=== PATIENT | female | born 1955 | race Caucasian/White ===

== ENCOUNTER 2018-05-01 13:33 | Day surgery (SDC) | END 2018-05-01 16:59 | disposition home or self-care (01) ==

== ENCOUNTER 2018-07-23 16:01 | Inpatient (IN) | payer OTHER ==
[~2018-07-23] VITALS: Ht 162.6 cm; Wt 88.0 kg
[~2018-07-23 16:01] MED LIST: ASPI-535 PO; GABA-528 PO; ibuprofen PO; meloxicam PO; simvastatin PO
[2018-07-23 19:49] VITALS: BP 153/74; PULSE 89; RESP 20
[2018-07-23] MEDS ORDERED: PREG300C PO (19:49)
[2018-07-23 20:18] VITALS: Ht 162.6 cm; Wt 88.0 kg
[2018-07-23] MEDS ORDERED: NACL 0.9% 3 ML SYG IV SCH (20:30)
[2018-07-23] MEDS: DEXTROSE 5%-0.45% NACL 1,000 ML IV SCH (20:41)
[2018-07-23] MEDS: GABAPENTIN 300 MG CAP PO SCH (21:49)
[2018-07-23] MEDS: morphine 2 MG INJ IV PRN (22:00)
[2018-07-23] MEDS: PREGABALIN 100 MG CAP PO SCH (22:37)
--- NOTE | 2018-07-23 23:12 | HP ---
Date/Time of Note Date/Time of Note DATE: 07/23/18 TIME: 23:12 Assessment/Plan VTE Prophylaxis SCD applied (from Nsg): Yes Pharmacological prophylaxis: NA/contraindicated Pharm contraindication: low risk/ambulating, other (Awaiting surgical eval for likely cholecystectomy) Lines/Catheters IV Catheter Type (from Nrsg): Peripheral IV Assessment/Plan Assessment/Plan 1. Acute cholecystitis -Keep n.p.o. with IV fluid -IV antibiotic -Surgical consult 2. Dyslipidemia: Hold Zocor for now 3. Fibromyalgia/anxiety: Pain management HPI/ROS Admit Date/Time Admit Date/Time Jul 23, 2018 at 19:10 Hx of Present Illness This is a 62-year-old female with a history of dyslipidemia, fibromyalgia, anxiety, arthritis who initially presented to an outside hospital complaining of right upper quadrant abdominal pain. Pain is been going on for the past 1 week. Abdominal ultrasound showed cholelithiasis with gallbladder wall thickening and pericholecystic fluid. Liver chemistries were WNL. Platelet was 90, hemoglobin almost 11, WBC around 8. Patient was transferred to [facility] for insurance reasons. PMH/Family/Social Past Medical History Medical History: other (See HPI) Medications Current Medications Dextrose/Sodium Chloride 1,000 ml @ 100 mls/hr Q10H IV Last administered on 07/23/18at 20:41; Admin Dose 100 MLS/HR; Start 07/23/18 at 20:06 IV Flush (NS 3 ml) 3 ml PER PROTOCOL IV ; Start 07/23/18 at 20:30 Ondansetron HCl (Zofran Inj) 4 mg Q6H PRN IV NAUSEA/VOMITING; Start 07/23/18 at 20:30 Morphine Sulfate (morphine) 2 mg Q4H PRN IV .SEVERE PAIN 7-10 Last administered on 07/23/18at 22:00; Admin Dose 2 MG; Start 07/23/18 at 20:30 Gabapentin (Neurontin) 600 mg TID PO Last administered on 07/23/18at 21:49; Admin Dose 600 MG; Start 07/23/18 at 21:00 Pregabalin (Lyrica) 300 mg BID PO Last administered on 07/23/18at 22:37; Admin Dose 300 MG; Start 07/23/18 at 21:00 Coded Allergies: Penicillins (Verified Allergy, Unknown, 05/01/18) Past Surgical History Past Surgical Hx: other (See HPI) Family History Significant Family History: no pertinent family hx Social History Alcohol Use: none Smoking Status: Former smoker Drug Use: none Exam/Review of Systems Vital Signs Vitals Vital Signs Date Temp Pulse Resp B/P (MAP) Pulse Ox O2 O2 Flow FiO2 Time Delivery Rate 07/23/18 99.2 89 20 153/74 96 Room Air 19:49 (100) Exam Constitutional: alert, oriented, well developed Eyes: EOMI, PERRL Respiratory: clear to auscultation, normal air movement Cardiovascular: regular rate and rhythm, nl pulses Gastrointestinal: soft, other (Tender to deep palpation in the right upper quadrant area with minimal guarding. No rigidity, no rebound tenderness) Extremities: normal pulses GARRISON MONIQUE MD Jul 23, 2018 23:12
[2018-07-24 01:59] VITALS: BP 123/64; PULSE 85; RESP 20
[2018-07-24] MEDS: morphine 2 MG INJ IV PRN ×4 (04:39→20:43)
[2018-07-24] MEDS: DEXTROSE 5%-0.45% NACL 1,000 ML IV SCH ×2 (06:22→17:53)
[2018-07-24 08:15] VITALS: BP 118/58; PULSE 76; RESP 18
[2018-07-24] MEDS: PREGABALIN 100 MG CAP PO SCH ×2 (08:53→22:04)
[2018-07-24] MEDS: GABAPENTIN 300 MG CAP PO SCH ×3 (08:53→20:43)
--- NOTE | 2018-07-24 09:49 | PN ---
Date/Time of Note Date/Time of Note DATE: 07/24/18 TIME: 09:46 Assessment/Plan VTE Prophylaxis Risk score (from Ns)>0 risk: 2 SCD applied (from Nsg): Yes Pharmacological prophylaxis: other Lines/Catheters IV Catheter Type (from Nrsg): Peripheral IV Assessment/Plan Hospital Course S: Patient still n.p.o., complaining of some abdominal pain and headache. O: Vs -see below PE: Constitutional: alert, oriented, in mild distress Eyes: EOMI, PERRL Respiratory: clear to auscultation, normal air movement Cardiovascular: regular rate and rhythm, nl pulses Gastrointestinal: soft, other (Tender to deep palpation in the right upper quadrant area with minimal guarding. No rigidity, no rebound tenderness) Extremities: normal pulses Assessment/Plan: 62-year-old female who presents with: 1. Abdominal pain: Likely secondary to acute cholecystitis. Per notes, abdominal ultrasound showed cholelithiasis with gallbladder wall thickening and pericholecystic fluid. -Continue to keep n.p.o. with IV fluid -For now continue IV antibiotic -Follow-up recommendations from surgical consult 2. Dyslipidemia: Holding Zocor for now -Consider checking lipid panel 3. Fibromyalgia/anxiety: Pain management with current medications, monitor Result Diagram: 07/24/18 0440 07/24/18 0440 Results 24hrs Laboratory Tests Test 07/24/18 04:40 White Blood Count 6.4 Red Blood Count 3.73 L Hemoglobin 10.5 L Hematocrit 32.6 L Mean Corpuscular Volume 87.4 Mean Corpuscular Hemoglobin 28.2 L Mean Corpuscular Hemoglobin Concent 32.2 Red Cell Distribution Width 13.7 Platelet Count 132 L Mean Platelet Volume 10.5 #H Immature Granulocytes % 2.000 H Neutrophils % 61.5 Lymphocytes % 18.5 Monocytes % 13.9 H Eosinophils % 3.8 Basophils % 0.3 Nucleated Red Blood Cells % 0.0 Immature Granulocytes # 0.130 H Neutrophils # 3.9 Lymphocytes # 1.2 Monocytes # 0.9 Eosinophils # 0.2 Basophils # 0.0 Nucleated Red Blood Cells # 0.0 Sodium Level 140 Potassium Level 3.9 Chloride Level 102 Carbon Dioxide Level 29 Anion Gap 9 Blood Urea Nitrogen 4 L Creatinine 0.58 Est Glomerular Filtrat Rate mL/min > 60 Glucose Level 119 Calcium Level 8.8 Phosphorus Level 3.9 Magnesium Level 1.8 Total Bilirubin 0.3 Direct Bilirubin 0.00 Indirect Bilirubin 0.3 Aspartate Amino Transf (AST/SGOT) 22 Alanine Aminotransferase (ALT/SGPT) 14 Alkaline Phosphatase 77 Total Protein 6.6 Albumin 3.1 L Globulin 3.50 H Albumin/Globulin Ratio 0.88 Lipase 53 Exam/Review of Systems Exam Vitals Vital Signs Date Temp Pulse Resp B/P (MAP) Pulse Ox O2 O2 Flow FiO2 Time Delivery Rate 07/24/18 97.8 76 18 118/58 93 08:15 (78) 07/24/18 Room Air 01:59 Intake and Output 07/23/18 07/23/18 07/24/18 1515:00 23:00 07:00 IntakeIntake Total 1000 ml BalanceBalance 1000 ml Results Results 24hrs Laboratory Tests Test 07/24/18 04:40 White Blood Count 6.4 Red Blood Count 3.73 L Hemoglobin 10.5 L Hematocrit 32.6 L Mean Corpuscular Volume 87.4 Mean Corpuscular Hemoglobin 28.2 L Mean Corpuscular Hemoglobin Concent 32.2 Red Cell Distribution Width 13.7 Platelet Count 132 L Mean Platelet Volume 10.5 #H Immature Granulocytes % 2.000 H Neutrophils % 61.5 Lymphocytes % 18.5 Monocytes % 13.9 H Eosinophils % 3.8 Basophils % 0.3 Nucleated Red Blood Cells % 0.0 Immature Granulocytes # 0.130 H Neutrophils # 3.9 Lymphocytes # 1.2 Monocytes # 0.9 Eosinophils # 0.2 Basophils # 0.0 Nucleated Red Blood Cells # 0.0 Sodium Level 140 Potassium Level 3.9 Chloride Level 102 Carbon Dioxide Level 29 Anion Gap 9 Blood Urea Nitrogen 4 L Creatinine 0.58 Est Glomerular Filtrat Rate mL/min > 60 Glucose Level 119 Calcium Level 8.8 Phosphorus Level 3.9 Magnesium Level 1.8 Total Bilirubin 0.3 Direct Bilirubin 0.00 Indirect Bilirubin 0.3 Aspartate Amino Transf (AST/SGOT) 22 Alanine Aminotransferase (ALT/SGPT) 14 Alkaline Phosphatase 77 Total Protein 6.6 Albumin 3.1 L Globulin 3.50 H Albumin/Globulin Ratio 0.88 Lipase 53 Medications Medication Current Medications Dextrose/Sodium Chloride 1,000 ml @ 100 mls/hr Q10H IV Last administered on 07/24/18at 06:22; Admin Dose 100 MLS/HR; Start 07/23/18 at 20:06 IV Flush (NS 3 ml) 3 ml PER PROTOCOL IV Last administered on 07/24/18 03:02; Admin Dose 3 ML; Start 07/23/18 at 20:30 Ondansetron HCl (Zofran Inj) 4 mg Q6H PRN IV NAUSEA/VOMITING; Start 07/23/18 at 20:30 Morphine Sulfate (morphine) 2 mg Q4H PRN IV .SEVERE PAIN 7-10 Last administered on 07/24/18 08:54; Admin Dose 2 MG; Start 07/23/18 at 20:30 Gabapentin (Neurontin) 600 mg TID PO Last administered on 07/24/18 08:53; Admin Dose 600 MG; Start 07/23/18 at 21:00 Pregabalin (Lyrica) 300 mg BID PO Last administered on 07/24/18 08:53; Admin Dose 300 MG; Start 07/23/18 at 21:00 Hydromorphone HCl (Dilaudid) 0.5 mg Q4H PRN IV SEVERE PAIN LEVEL 7-10; Start 07/24/18 at 10:00 ROSLYN DAS Jul 24, 2018 09:49
[2018-07-24] MEDS: HYDROmorphONE 0.5 MG/0.5 ML SYG IV PRN ×2 (13:07→19:08)
[2018-07-24 13:18] VITALS: BP 128/60; PULSE 78; RESP 18
[2018-07-24 19:41] VITALS: BP 141/80; PULSE 81; RESP 18
--- NOTE | 2018-07-24 20:25 | CONS ---
Assessment/Plan Assessment/Plan Assessment/Plan (Daily) 5-day history abdominal pain consistent with acute cholecystitis with pericholecystic fluid. No evidence of CBD obstruction normal LFTs. Plan keep patient n.p.o. IV fluids IV antibiotics and plan for lap scopic cholecystectomy as soon as or time can be arranged. Consultation Date/Type/Reason Admit Date/Time Jul 23, 2018 at 19:10 Date of Consultation: Jul 24, 2018 Type of Consult Surgery consult Reason for Consultation Abdominal pain suspicious for cholecystitis Requesting Provider: GARRISON MONIQUE MD Date/Time of Note DATE: 07/24/18 TIME: 20:24 Hx of Present Illness Patient presents with 5-day epigastric right upper quadrant pain nausea. Patient went to outside hospital and was evaluated but because of insurance reasons was transferred to [facility]. On evaluation in the emergency room patient was noted to have tenderness. Imaging studies from outside hospital showed thickening of the gallbladder with pericholecystic fluid consistent with acute cholecystitis. LFTs normal. No similar symptoms to this in the past. Past medical history unremarkable past surgical history unremarkable. Past Medical History Medical History: other (See HPI) Home Meds Reported Medications Pregabalin* (Lyrica*) 300 Mg Capsule, 300 MG PO BID, CAP 07/23/18 Aspirin Ec (Aspir 81) 81 Mg Tablet.dr, 81 MG PO DAILY, #30 TAB 05/01/18 [ibuprofen] No Conflict Check, PO DAILY PRN for PAIN AND/OR INFLAMMATION 05/01/18 [meloxicam] No Conflict Check, PO DAILY 05/01/18 [simvastatin] 20 No Conflict Check, PO hs 05/01/18 Gabapentin* (Gabapentin*) 800 Mg Tablet, 600 MG PO TID, TAB 07/20/14 Medications Current Medications Dextrose/Sodium Chloride 1,000 ml @ 100 mls/hr Q10H IV Last administered on 07/24/18at 17:53; Admin Dose 100 MLS/HR; Start 07/23/18 at 20:06 IV Flush (NS 3 ml) 3 ml PER PROTOCOL IV Last administered on 07/24/18at 03:02; Admin Dose 3 ML; Start 07/23/18 at 20:30 Ondansetron HCl (Zofran Inj) 4 mg Q6H PRN IV NAUSEA/VOMITING; Start 07/23/18 at 20:30 Morphine Sulfate (morphine) 2 mg Q4H PRN IV .SEVERE PAIN 7-10 Last administered on 07/24/18at 14:43; Admin Dose 2 MG; Start 07/23/18 at 20:30 Gabapentin (Neurontin) 600 mg TID PO Last administered on 07/24/18at 13:07; Admin Dose 600 MG; Start 07/23/18 at 21:00 Pregabalin (Lyrica) 300 mg BID PO Last administered on 07/24/18at 08:53; Admin Dose 300 MG; Start 07/23/18 at 21:00 Hydromorphone HCl (Dilaudid) 0.5 mg Q4H PRN IV SEVERE PAIN LEVEL 7-10 Last administered on 07/24/18at 19:08; Admin Dose 0.5 MG; Start 07/24/18 at 10:00 Allergies: Coded Allergies: Penicillins (Verified Allergy, Unknown, 05/01/18) Past Surgical History Past Surgical Hx: other (See HPI) Social History Alcohol Use: none Smoking Status: Former smoker Drug Use: none Exam/Review of Systems Exam Vitals Vital Signs Date Temp Pulse Resp B/P (MAP) Pulse Ox O2 O2 Flow FiO2 Time Delivery Rate 07/24/18 98.8 81 18 141/80 94 19:41 (100) 07/24/18 Room Air 01:59 Intake and Output 07/23/18 07/23/18 07/24/18 1515:00 23:00 07:00 IntakeIntake Total 1000 ml BalanceBalance 1000 ml Exam A&O x3. HEENT pupils equal reactive to light sclerae anicteric. Lungs clear to auscultation. Heart regular rate and rhythm normal S1-S2. Abdomen soft moderate tenderness to epigastric right upper quadrant. Results Result Diagram: 07/24/1843907/24/180 Results 24hrs Laboratory Tests Test 07/24/18 04:40 White Blood Count 6.4 Red Blood Count 3.73 L Hemoglobin 10.5 L Hematocrit 32.6 L Mean Corpuscular Volume 87.4 Mean Corpuscular Hemoglobin 28.2 L Mean Corpuscular Hemoglobin Concent 32.2 Red Cell Distribution Width 13.7 Platelet Count 132 L Mean Platelet Volume 10.5 #H Immature Granulocytes % 2.000 H Neutrophils % 61.5 Lymphocytes % 18.5 Monocytes % 13.9 H Eosinophils % 3.8 Basophils % 0.3 Nucleated Red Blood Cells % 0.0 Immature Granulocytes # 0.130 H Neutrophils # 3.9 Lymphocytes # 1.2 Monocytes # 0.9 Eosinophils # 0.2 Basophils # 0.0 Nucleated Red Blood Cells # 0.0 Sodium Level 140 Potassium Level 3.9 Chloride Level 102 Carbon Dioxide Level 29 Anion Gap 9 Blood Urea Nitrogen 4 L Creatinine 0.58 Est Glomerular Filtrat Rate mL/min > 60 Glucose Level 119 Calcium Level 8.8 Phosphorus Level 3.9 Magnesium Level 1.8 Total Bilirubin 0.3 Direct Bilirubin 0.00 Indirect Bilirubin 0.3 Aspartate Amino Transf (AST/SGOT) 22 Alanine Aminotransferase (ALT/SGPT) 14 Alkaline Phosphatase 77 Total Protein 6.6 Albumin 3.1 L Globulin 3.50 H Albumin/Globulin Ratio 0.88 Lipase 53 Medications Medication Current Medications Dextrose/Sodium Chloride 1,000 ml @ 100 mls/hr Q10H IV Last administered on 07/24/18 17:53; Admin Dose 100 MLS/HR; Start 07/23/18 at 20:06 IV Flush (NS 3 ml) 3 ml PER PROTOCOL IV Last administered on 07/24/18 03:02; Admin Dose 3 ML; Start 07/23/18 at 20:30 Ondansetron HCl (Zofran Inj) 4 mg Q6H PRN IV NAUSEA/VOMITING; Start 07/23/18 at 20:30 Morphine Sulfate (morphine) 2 mg Q4H PRN IV .SEVERE PAIN 7-10 Last administered on 07/24/18 14:43; Admin Dose 2 MG; Start 07/23/18 at 20:30 Gabapentin (Neurontin) 600 mg TID PO Last administered on 07/24/18 13:07; Admin Dose 600 MG; Start 07/23/18 at 21:00 Pregabalin (Lyrica) 300 mg BID PO Last administered on 07/24/18 08:53; Admin Dose 300 MG; Start 07/23/18 at 21:00 Hydromorphone HCl (Dilaudid) 0.5 mg Q4H PRN IV SEVERE PAIN LEVEL 7-10 Last administered on 07/24/18 19:08; Admin Dose 0.5 MG; Start 07/24/18 at 10:00 GARRISON RASHID MD Jul 24, 2018 20:25
[2018-07-25] VITALS (15 sets, daily range): BP systolic 95–168; BP diastolic 49–83; PULSE 70–84; RESP 10–22
[2018-07-25] MEDS: morphine 2 MG INJ IV PRN ×2 (00:39→05:40)
[2018-07-25] MEDS: DEXTROSE 5%-0.45% NACL 1,000 ML IV SCH ×2 (03:51→12:06)
[2018-07-25] MEDS ORDERED: CLINDAMYCIN 600 MG/50 ML D5W IVPB IVPB ONE (07:00)
[2018-07-25] MEDS: GABAPENTIN 300 MG CAP PO SCH ×3 (08:26→20:31)
[2018-07-25] MEDS: PREGABALIN 100 MG CAP PO SCH ×2 (08:26→20:31)
[2018-07-25] MEDS: ONDANSETRON 4 MG INJ IV PRN ×2 (10:10→19:16)
[2018-07-25] MEDS ORDERED: MIDAZOLAM 1 MG/ML 2 ML INJ ONE (12:41)
[2018-07-25] MEDS ORDERED: FENTAnyl 50 MCG/ML VIAL ONE ×2 (12:41→14:39)
[2018-07-25] MEDS ORDERED: PROPOFOL 40 ML ONE (12:41)
[2018-07-25] MEDS ORDERED: LIDOCAINE 2% (SDV) 5 ML INJ ONE (12:41)
[2018-07-25] MEDS ORDERED: ROCURONIUM 50 MG INJ ONE (12:41)
[2018-07-25] MEDS ORDERED: FAMOTIDINE 20 MG INJ ONE (12:42)
[2018-07-25] MEDS ORDERED: ONDANSETRON 4 MG INJ ONE (12:42)
[2018-07-25] MEDS ORDERED: BUPIVACAINE 0.25% (MPF) 30 ML INJ ONE (13:12)
[2018-07-25] MEDS ORDERED: LIDOCAINE 1%/EPI (1:100,000) (MDV) 20 ML ONE (13:12)
--- NOTE | 2018-07-25 13:25 | PREAC ---
Date/Time of Note Date/Time of Note DATE: 07/25/18 TIME: 13:23 Anesthesia Eval and Record Evaluation Time Pre-Procedure Interview DATE: 07/25/18 TIME: 13:23 Age 62 Sex female NPO: 8 hrs Preoperative diagnosis acute cholecystitis Planned procedure Laparoscopic cholecystectomy Past Medical History Past Medical History: Includes (fibromyalgia, neuropathy, currently have cold sores upper right) Cardio: Dyslipidemia GI: Obesity Surgery & Anesthesia Issues No known issue Meds Anticoagulation: No Beta Quincy within 24 hr: No Reason Beta Quincy not given: Pt. not on B-Quincy Reported Medications Pregabalin* (Lyrica*) 300 Mg Capsule, 300 MG PO BID, CAP 07/23/18 Aspirin Ec (Aspir 81) 81 Mg Tablet.dr, 81 MG PO DAILY, #30 TAB 05/01/18 [ibuprofen] No Conflict Check, PO DAILY PRN for PAIN AND/OR INFLAMMATION 05/01/18 [meloxicam] No Conflict Check, PO DAILY 05/01/18 [simvastatin] 20 No Conflict Check, PO hs 05/01/18 Gabapentin* (Gabapentin*) 800 Mg Tablet, 600 MG PO TID, TAB 07/20/14 Current Medications Dextrose/Sodium Chloride 1,000 ml @ 100 mls/hr Q10H IV Last administered on 07/25/18at 03:51; Admin Dose 100 MLS/HR; Start 07/23/18 at 20:06 IV Flush (NS 3 ml) 3 ml PER PROTOCOL IV Last administered on 07/24/18at 03:02; Admin Dose 3 ML; Start 07/23/18 at 20:30 Ondansetron HCl (Zofran Inj) 4 mg Q6H PRN IV NAUSEA/VOMITING Last administered on 07/25/18at 10:10; Admin Dose 4 MG; Start 07/23/18 at 20:30 Morphine Sulfate (morphine) 2 mg Q4H PRN IV .SEVERE PAIN 7-10 Last administered on 07/25/18at 05:40; Admin Dose 2 MG; Start 07/23/18 at 20:30 Gabapentin (Neurontin) 600 mg TID PO Last administered on 07/25/18 08:26; Admin Dose 600 MG; Start 07/23/18 at 21:00 Pregabalin (Lyrica) 300 mg BID PO Last administered on 07/25/18 08:26; Admin Dose 300 MG; Start 07/23/18 at 21:00 Hydromorphone HCl (Dilaudid) 0.5 mg Q4H PRN IV SEVERE PAIN LEVEL 7-10 Last administered on 07/24/18at 19:08; Admin Dose 0.5 MG; Start 07/24/18 at 10:00 Meds reviewed: Yes Allergies Coded Allergies: Penicillins (Verified Allergy, Unknown, 05/01/18) Allergies Reviewed: Yes Labs/Studies Labs Reviewed: Reviewed by anesthesiologist Result Diagram: 07/25/18 0432 07/25/18431 Laboratory Tests 07/25/18 04:32 test: N/A Pre-procedure Exam Last vitals Vital Signs Date Temp Pulse Resp B/P (MAP) Pulse Ox O2 O2 Flow FiO2 Time Delivery Rate 07/25/18 98.7 84 20 124/78 92 08:01 (93) 07/24/18 Room Air 01:59 Airway: Adequate mouth opening, Adequate thyromental dist Mallampati: Mallampati II Teeth: Abnormal (multiple missing teeth upper and lower.. edentulous upper area w/ some implants) Lung: Normal Heart: Normal ASA Physical Status ASA physical status: 2 Emergency: None Planned Anesthetic General/MAC: ETT Pre-operative Attestations Prior to commencing anesthesia and surgery, the patient was re-evaluated, there was verification of: *The patient's identity *The results of appropriate recent lab work and preoperative vital signs *The above evaluation not changing prior to induction *Anesthetic plan, risk benefits, alternative and complications discussed with patient/family; questions answered; patient/family understands, accepts and wishes to proceed. SHIN THOMPSON Jul 25, 2018 13:25
[2018-07-25] MEDS ORDERED: MEPERIDINE 25 MG INJ IV PRN (13:30)
[2018-07-25] MEDS ORDERED: LABETALOL HCL 20MG INJ IV PRN (13:30)
[2018-07-25] MEDS ORDERED: DIPHENHYDRAMINE 50 MG INJ IV PRN (13:30)
[2018-07-25] MEDS ORDERED: ALBUTEROL 0.083% (NEB) 2.5 MG/3 ML AMP HHN PRN (13:30)
[2018-07-25] MEDS ORDERED: FENTAnyl 50 MCG/ML VIAL IV PRN (13:30)
[2018-07-25] MEDS ORDERED: HYDROmorphONE 1 MG/5 ML IV SYRINGE IV PRN ×2 (13:30)
[2018-07-25] MEDS ORDERED: ONDANSETRON 4 MG INJ IV PRN ×2 (13:30→17:00)
[2018-07-25] MEDS ORDERED: OXYCODONE/ACETAMINOPHEN (5/325) TAB PO PRN ×2 (13:30)
[2018-07-25] MEDS ORDERED: morphine (1 MG/ML) 10ML SYRINGE IV PRN ×2 (13:30)
--- NOTE | 2018-07-25 14:05 | PN ---
Date/Time of Note Date/Time of Note DATE: 07/25/18 TIME: 14:03 Assessment/Plan VTE Prophylaxis Risk score (from Nsg)>0 risk: 2 SCD applied (from Nsg): Yes Pharmacological prophylaxis: other Lines/Catheters IV Catheter Type (from Nrsg): Peripheral IV Assessment/Plan Hospital Course S: Patient still n.p.o., complaining of some abdominal pain and headache. O: Vs -see below PE: -Unable to be performed presently because patient presently off the floor at surgical procedure Assessment/Plan: 62-year-old female who presents with: 1. Abdominal pain: Likely secondary to acute cholecystitis. Per notes, abdominal ultrasound showed cholelithiasis with gallbladder wall thickening and pericholecystic fluid. -Continue to keep n.p.o. with IV fluid -For now continue IV antibiotic -Again presently getting surgery, follow-up post operative recommendations from surgical consult 2. Dyslipidemia: Holding Zocor for now -Monitor for now 3. Fibromyalgia/anxiety: Pain management with current medications, monitor Result Diagram: 07/25/18 0432 07/25/18 0432 Results 24hrs Laboratory Tests Test 07/25/18 04:32 White Blood Count 6.6 Red Blood Count 3.95 L Hemoglobin 11.1 L Hematocrit 34.0 L Mean Corpuscular Volume 86.1 Mean Corpuscular Hemoglobin 28.1 L Mean Corpuscular Hemoglobin Concent 32.6 Red Cell Distribution Width 13.5 Platelet Count 201 # Mean Platelet Volume 10.6 H Immature Granulocytes % 0.800 H Neutrophils % 62.5 Lymphocytes % 23.0 Monocytes % 10.0 Eosinophils % 3.2 Basophils % 0.5 Nucleated Red Blood Cells % 0.0 Immature Granulocytes # 0.050 H Neutrophils # 4.2 Lymphocytes # 1.5 Monocytes # 0.7 Eosinophils # 0.2 Basophils # 0.0 Nucleated Red Blood Cells # 0.0 Sodium Level 141 Potassium Level 3.6 Chloride Level 103 Carbon Dioxide Level 29 Anion Gap 9 Blood Urea Nitrogen 4 L Creatinine 0.53 Est Glomerular Filtrat Rate mL/min > 60 Glucose Level 111 Calcium Level 8.9 Phosphorus Level 4.3 Magnesium Level 1.9 Exam/Review of Systems Exam Vitals Vital Signs Date Temp Pulse Resp B/P (MAP) Pulse Ox O2 O2 Flow FiO2 Time Delivery Rate 07/25/18 98.7 84 20 124/78 92 08:01 (93) 07/24/18 Room Air 01:59 Intake and Output 07/24/18 07/24/18 07/25/18 1515:00 23:00 07:00 IntakeIntake Total 1000 ml 1300 ml BalanceBalance 1000 ml 1300 ml Results Results 24hrs Laboratory Tests Test 07/25/18 04:32 White Blood Count 6.6 Red Blood Count 3.95 L Hemoglobin 11.1 L Hematocrit 34.0 L Mean Corpuscular Volume 86.1 Mean Corpuscular Hemoglobin 28.1 L Mean Corpuscular Hemoglobin Concent 32.6 Red Cell Distribution Width 13.5 Platelet Count 201 # Mean Platelet Volume 10.6 H Immature Granulocytes % 0.800 H Neutrophils % 62.5 Lymphocytes % 23.0 Monocytes % 10.0 Eosinophils % 3.2 Basophils % 0.5 Nucleated Red Blood Cells % 0.0 Immature Granulocytes # 0.050 H Neutrophils # 4.2 Lymphocytes # 1.5 Monocytes # 0.7 Eosinophils # 0.2 Basophils # 0.0 Nucleated Red Blood Cells # 0.0 Sodium Level 141 Potassium Level 3.6 Chloride Level 103 Carbon Dioxide Level 29 Anion Gap 9 Blood Urea Nitrogen 4 L Creatinine 0.53 Est Glomerular Filtrat Rate mL/min > 60 Glucose Level 111 Calcium Level 8.9 Phosphorus Level 4.3 Magnesium Level 1.9 Medications Medication Current Medications Dextrose/Sodium Chloride 1,000 ml @ 100 mls/hr Q10H IV Last administered on 07/25/18at 03:51; Admin Dose 100 MLS/HR; Start 07/23/18 at 20:06 IV Flush (NS 3 ml) 3 ml PER PROTOCOL IV Last administered on 07/24/18at 03:02; Admin Dose 3 ML; Start 07/23/18 at 20:30 Ondansetron HCl (Zofran Inj) 4 mg Q6H PRN IV NAUSEA/VOMITING Last administered on 07/25/18 10:10; Admin Dose 4 MG; Start 07/23/18 at 20:30 Morphine Sulfate (morphine) 2 mg Q4H PRN IV .SEVERE PAIN 7-10 Last administered on 07/25/18at 05:40; Admin Dose 2 MG; Start 07/23/18 at 20:30 Gabapentin (Neurontin) 600 mg TID PO Last administered on 07/25/18 08:26; Admin Dose 600 MG; Start 07/23/18 at 21:00 Pregabalin (Lyrica) 300 mg BID PO Last administered on 07/25/18at 08:26; Admin Dose 300 MG; Start 07/23/18 at 21:00 Hydromorphone HCl (Dilaudid) 0.5 mg Q4H PRN IV SEVERE PAIN LEVEL 7-10 Last administered on 07/24/18at 19:08; Admin Dose 0.5 MG; Start 07/24/18 at 10:00 Morphine Sulfate (morphine (REC)) 2 mg PACU ORDER PRN IV MILD PAIN 1-3; Start 07/25/18 at 13:30; Stop 07/25/18 at 18:00 Morphine Sulfate (morphine (REC)) 4 mg PACU ORDER PRN IV MOD PAIN 4-6; Start 07/25/18 at 13:30; Stop 07/25/18 at 18:00 Hydromorphone HCl (Dilaudid) 0.2 mg PACU PRN IV MILD PAIN 1-3; Start 07/25/18 at 13:30; Stop 07/25/18 at 18:00 Hydromorphone HCl (Dilaudid) 0.4 mg PACU PRN IV MOD PAIN 4-6; Start 07/25/18 at 13:30; Stop 07/25/18 at 18:00 Fentanyl (Sublimaze) 25 mcg PACU ORDER PRN IV MILD PAIN 1-3; Start 07/25/18 at 13:30; Stop 07/25/18 at 18:00 Fentanyl (Sublimaze) 50 mcg PACU ORDER PRN IV MOD PAIN 4-6; Start 07/25/18 at 13:30; Stop 07/25/18 at 18:00 Oxycodone/ Acetaminophen (Percocet (5/ 325)) 1 tab PACU ORDER PRN PO .PAIN 1-5; Start 07/25/18 at 13:30; Stop 07/25/18 at 18:00 Oxycodone/ Acetaminophen (Percocet (5/ 325)) 2 tab PACU ORDER PRN PO .PAIN 6-10; Start 07/25/18 at 13:30; Stop 07/25/18 at 18:00 Ondansetron HCl (Zofran Inj) 4 mg PACU ORDER PRN IV NAUSEA/VOMITING; Start 07/25/18 at 13:30; Stop 07/25/18 at 18:00 Labetalol HCl (Labetalol) 5 mg PACU ORDER PRN IV HIGH BLOOD PRESSURE; Start 07/25/18 at 13:30; Stop 07/25/18 at 18:00 Albuterol (Proventil 0.083% (Neb)) 2.5 mg PACU ORDER PRN HHN .WHEEZING; Start 07/25/18 at 13:30; Stop 07/25/18 at 18:00 Meperidine HCl (Demerol) 25 mg PACU ORDER PRN IV .RIGORS; Start 07/25/18 at 1 3:30; Stop 07/25/18 at 18:00 Diphenhydramine HCl (Benadryl) 25 mg PACU ORDER PRN IV .PRURITUS; Start 07/25/18 at 13:30; Stop 07/25/18 at 18:00 ROSLYN DAS Jul 25, 2018 14:05
[2018-07-25] MEDS ORDERED: SUGAMMADEX SODIUM 200 MG/2 ML VIAL IV ONE (15:26)
--- NOTE | 2018-07-25 16:25 | PAC ---
Date/Time of Note Date/Time of Note DATE: 07/25/18 TIME: 16:24 Post-Anesthesia Notes Post-Anesthesia Note Last documented vital signs Vital Signs Date Temp Pulse Resp B/P (MAP) Pulse Ox O2 O2 Flow FiO2 Time Delivery Rate 07/25/18 98.7 84 20 124/78 92 08:01 (93) 07/24/18 Room Air 01:59 Activity: WNL Respiratory function: WNL Cardiovascular function: WNL Mental status: Baseline Pain reasonably controlled: Yes Hydration appropriate: Yes Nausea/Vomiting absent: Yes ANNIE SALGADO Jul 25, 2018 16:25
[2018-07-25] MEDS: FENTAnyl 50 MCG/ML VIAL IV PRN ×2 (16:40→16:47)
[2018-07-25] MEDS ORDERED: DIPHENHYDRAMINE 25 MG CAP PO PRN (17:00)
[2018-07-25] MEDS ORDERED: KETOROLAC 30 MG INJ IV PRN (17:00)
[2018-07-25] MEDS ORDERED: HYDROmorphONE 0.5 MG/0.5 ML SYG IV PRN (17:00)
--- NOTE | 2018-07-25 17:02 | OPR ---
Date/Time of Note Date/Time of Note DATE: 07/25/18 TIME: 16:32 Operative Report Free Text/Dictation Operative report Procedure Date: Jul 25, 2018 Preoperative Diagnosis Acute and chronic cholecystitis Postoperative Diagnosis Severe cholecystitis Operation/Procedure Performed Laparoscopic cholecystectomy Surgeon Garrison Dinh MD see signature line [employer] Consultant None Anesthesia Type: general Anesthesiologist: ANNIE SALGADO Estimated Blood Loss: 50 - 100 ml's Transfusion none Specimen Gallbladder and content Grafts/Implants none Tubes/Drains 19 Greek Isidro Complications none Pt Condition Post Procedure: stable Disposition: PACU Indications Patient with severe epigastric pain intermittent with 2 prior visits to outside hospital. Patient was admitted to the emergency room yesterday noted to have significant tenderness signs and symptoms consistent with acute and chronic cholecystitis. Surgical consultation requested I saw the patient and felt she warranted urgent cholecystectomy. Risk benefits alternatives and postoperative expectations were discussed and patient is brought for urgent laparoscopic cholecystectomy Procedure Description Patient is brought to the operative room placed supine position general she is administered with intubation patient prepped draped in sterile fashion orogastric tube inserted by anesthesia takeout was completed standard varies needle was used of the left upper quadrant Tilley's point insufflation delivered to maintain pneumoperitoneum at 15 mmHg throughout the procedure Small stab incision was made just above the umbilicus and a 5 mm trocar was inserted under direct fixation with a 30 degree laparoscope. The varies needle was removed. An epigastric 11 mm trocar and 2 right-sided 5 mm trocars were inserted next The gallbladder cannot be seen initially as the omentum was densely adherent to it was a phrygian cap. Carefully the omentum was peeled off and the entire length of the gallbladder had dense adherent adhesions of surrounding structures. The gallbladder was decompressed of its bile by doing a cholecystostomy at the fundus facilitating grasping the fundus of the gallbladder lifting it over the edge of the right lobe of the liver. Carefully with a combination of [place] dissection blunt dissection and laparoscopic [place] the gallbladder was exposed. The area of the common bile duct and cystic duct were densely adherent to the gallbladder and so care was taken to carefully skeletonize the cystic duct which was encountered first double clipped on the patient's side one on the gallbladder side and then it was able to be divided the common duct was quite close and adherent to this and so care was taken back to bluntly dissect this off the gallbladder and enable the gallbladder to be elevated. 2 clips were placed on the cystic artery and the gallbladder was elevated and a careful technique. The gallbladder was somewhat intrahepatic up towards the fundus and encountered the back wall at one point. There was some stones which were extricated with a 10mm grasper. A because of the very large size and thickness firmness of the gallbladder a 15 mm Endo Catch bag was brought to the field in the epigastrium millimeters trocar incision was extended was enlarging so that the 15 mm bag specimen bag could be inserted gallbladder placed in this and it was brought up through the wound after the incision enlargement. The trocar was then reinserted and metallic clips to keep pneumoperitoneum. There was a moderate amount of oozing totals probably 75 cc. The oozing stopped the hepatic surface was irrigated and cautery used to control hemostasis. The area was irrigated with copious irrigation and aspirated until clear. 5 cc of FloSeal were then instilled on the gallbladder fossa. A 19 Greek Isidro drain was then inserted and placed in the operative field and brought out through the right lateral trocar site. All trocars were then removed. The fascia of the epigastric incision was closed with interrupted 0 Vicryl and 0 PDS suture. The subcutaneous tissue was then closed with 3-0 Vicryl and the skin was closed with 4-0 Monocryl and Dermabond for dressing. The patient was extubated in the operating room and brought to recovery room in stable condition. Sponge and needle count correct x2 GARRISON DINH MD Jul 25, 2018 16:45
[2018-07-25] MEDS: D5W-0.45 NACL + KCL 20 MEQ 1,000 ML IV SCH (17:55)
[2018-07-25] MEDS: FAMOTIDINE 20 MG INJ IV SCH (20:33)
[2018-07-25] MEDS: HYDROmorphONE 0.5 MG/0.5 ML SYG IV PRN (20:36)
[2018-07-26 01:50] VITALS: BP 107/66; PULSE 106; RESP 16
[2018-07-26] MEDS: HYDROmorphONE 0.5 MG/0.5 ML SYG IV PRN ×5 (02:02→22:24)
[2018-07-26] MEDS: ACETAMINOPHEN 325 MG TAB PO PRN ×2 (02:54→11:14)
[2018-07-26] MEDS: D5W-0.45 NACL + KCL 20 MEQ 1,000 ML IV SCH ×4 (03:45→22:46)
[2018-07-26] MEDS: CEFAZOLIN 1 GM/50 ML (PMX) 50 ML IVPB SCH ×3 (06:18→21:45)
[2018-07-26] MEDS: ENOXAPARIN 40 MG/0.4 ML SYG SC SCH (06:22)
[2018-07-26 07:52] VITALS: BP 114/65; PULSE 87; RESP 20
[2018-07-26] MEDS: GABAPENTIN 300 MG CAP PO SCH ×3 (10:08→21:44)
[2018-07-26] MEDS: FAMOTIDINE 20 MG INJ IV SCH ×2 (10:09→21:44)
[2018-07-26] MEDS: PREGABALIN 100 MG CAP PO SCH ×2 (10:09→22:21)
--- NOTE | 2018-07-26 12:57 | PN ---
Date/Time of Note Date/Time of Note DATE: 07/26/18 TIME: 12:55 Assessment/Plan VTE Prophylaxis Risk score (from Nsg)>0 risk: 5 SCD applied (from Nsg): Yes Pharmacological prophylaxis: other Lines/Catheters IV Catheter Type (from Nrsg): Peripheral IV Assessment/Plan Hospital Course S: Patient had lap jessica yesterday, had some fevers last night. Started on diet today but has not passed gas yet. Still with some mild abdominal pain. O: Vs -see below PE: Constitutional: alert, oriented, in mild distress Eyes: EOMI, PERRL Respiratory: clear to auscultation, normal air movement Cardiovascular: regular rate and rhythm, nl pulses Gastrointestinal: soft, other (less tender to deep palpation in the right upper quadrant area with minimal guarding. No rigidity, no rebound tenderness) Extremities: normal pulses Date/Time of Note Date/Time of Note DATE: 07/25/18 TIME: 16:32 Operative Report Free Text/Dictation Operative report Procedure Date: Jul 25, 2018 Preoperative Diagnosis Acute and chronic cholecystitis Postoperative Diagnosis Severe cholecystitis Operation/Procedure Performed Laparoscopic cholecystectomy Assessment/Plan: 62-year-old female who presents with: 1. Abdominal pain: Likely secondary to acute cholecystitis. Per notes, abdominal ultrasound showed cholelithiasis with gallbladder wall thickening and pericholecystic fluid. Status post lap scopic ostectomy postop day # 1. -Continue diet per surgery recommendations, with IV fluid -For now continue current IV antibiotic -we will check UA and follow-up final culture result -follow-up post operative recommendations from surgical consult 2. Dyslipidemia: Holding Zocor for now -Monitor for now 3. Fibromyalgia/anxiety: Pain management with current medications, monitor Result Diagram: 07/26/18 0541 07/26/18 0541 Results 24hrs Laboratory Tests Test 07/26/18 05:41 White Blood Count 11.7 #H Red Blood Count 3.78 L Hemoglobin 10.6 L Hematocrit 32.2 L Mean Corpuscular Volume 85.2 Mean Corpuscular Hemoglobin 28.0 L Mean Corpuscular Hemoglobin Concent 32.9 Red Cell Distribution Width 13.4 Platelet Count 238 Mean Platelet Volume 10.6 H Immature Granulocytes % 0.600 H Neutrophils % 79.1 H Lymphocytes % 13.7 L Monocytes % 6.2 Eosinophils % 0.1 Basophils % 0.3 Nucleated Red Blood Cells % 0.0 Immature Granulocytes # 0.070 H Neutrophils # 9.2 H Lymphocytes # 1.6 Monocytes # 0.7 Eosinophils # 0.0 Basophils # 0.0 Nucleated Red Blood Cells # 0.0 Sodium Level 138 Potassium Level 3.7 Chloride Level 104 Carbon Dioxide Level 28 Anion Gap 6 Blood Urea Nitrogen 2 L Creatinine 0.55 Est Glomerular Filtrat Rate mL/min > 60 Glucose Level 148 Lactic Acid Level 0.7 Calcium Level 8.7 Phosphorus Level 3.4 Magnesium Level 1.7 Triglycerides Level 88 Cholesterol Level 115 LDL Cholesterol, Calculated 76 HDL Cholesterol 21 L Cholesterol/HDL Ratio 5.4 Exam/Review of Systems Exam Vitals Vital Signs Date Temp Pulse Resp B/P (MAP) Pulse Ox O2 O2 Flow FiO2 Time Delivery Rate 07/26/18 98.4 87 20 114/65 95 07:52 (81) 07/25/18 Nasal 2.0 17:16 Cannula Intake and Output 07/25/18 07/25/18 07/26/18 1515:00 23:00 07:00 IntakeIntake Total 600 ml 2000 ml 1200 ml OutputOutput Total 170 ml BalanceBalance 600 ml 1830 ml 1200 ml Results Results 24hrs Laboratory Tests Test 07/26/18 05:41 White Blood Count 11.7 #H Red Blood Count 3.78 L Hemoglobin 10.6 L Hematocrit 32.2 L Mean Corpuscular Volume 85.2 Mean Corpuscular Hemoglobin 28.0 L Mean Corpuscular Hemoglobin Concent 32.9 Red Cell Distribution Width 13.4 Platelet Count 238 Mean Platelet Volume 10.6 H Immature Granulocytes % 0.600 H Neutrophils % 79.1 H Lymphocytes % 13.7 L Monocytes % 6.2 Eosinophils % 0.1 Basophils % 0.3 Nucleated Red Blood Cells % 0.0 Immature Granulocytes # 0.070 H Neutrophils # 9.2 H Lymphocytes # 1.6 Monocytes # 0.7 Eosinophils # 0.0 Basophils # 0.0 Nucleated Red Blood Cells # 0.0 Sodium Level 138 Potassium Level 3.7 Chloride Level 104 Carbon Dioxide Level 28 Anion Gap 6 Blood Urea Nitrogen 2 L Creatinine 0.55 Est Glomerular Filtrat Rate mL/min > 60 Glucose Level 148 Lactic Acid Level 0.7 Calcium Level 8.7 Phosphorus Level 3.4 Magnesium Level 1.7 Triglycerides Level 88 Cholesterol Level 115 LDL Cholesterol, Calculated 76 HDL Cholesterol 21 L Cholesterol/HDL Ratio 5.4 Medications Medication Current Medications IV Flush (NS 3 ml) 3 ml PER PROTOCOL IV Last administered on 07/24/18 03:02; Admin Dose 3 ML; Start 07/23/18 at 20:30 Ondansetron HCl (Zofran Inj) 4 mg Q6H PRN IV NAUSEA/VOMITING Last administered on 07/25/18at 19:16; Admin Dose 4 MG; Start 07/23/18 at 20:30 Morphine Sulfate (morphine) 2 mg Q4H PRN IV .SEVERE PAIN 7-10 Last administered on 07/25/18 05:40; Admin Dose 2 MG; Start 07/23/18 at 20:30 Gabapentin (Neurontin) 600 mg TID PO Last administered on 07/26/18 10:08; Admin Dose 600 MG; Start 07/23/18 at 21:00 Pregabalin (Lyrica) 300 mg BID PO Last administered on 07/26/18 10:09; Admin Dose 300 MG; Start 07/23/18 at 21:00 Hydromorphone HCl (Dilaudid) 0.5 mg Q4H PRN IV SEVERE PAIN LEVEL 7-10 Last administered on 07/26/18 09:37; Admin Dose 0.5 MG; Start 07/24/18 at 10:00 Ondansetron HCl (Zofran Inj) 4 mg Q6H PRN IV NAUSEA AND/OR VOMITING; Start 07/25/18 at 17:00 Ketorolac Tromethamine (Toradol) 30 mg Q6H PRN IV PAIN; Start 07/25/18 at 17:00; Stop 07/28/18 at 16:59 Hydromorphone HCl (Dilaudid) 0.5 mg Q4H PRN IV BREAKTHROUGH PAIN; Start 07/25/18 at 17:00 Acetaminophen/ Hydrocodone Bitart ([place] (5/325)) 1 tab Q6H PRN PO PAIN LEVEL 6-10; Start 07/25/18 at 17:00 Diphenhydramine HCl (Benadryl) 25 mg Q6H PRN PO PRURITUS; Start 07/25/18 at 17:00 Famotidine (Pepcid Iv) 20 mg Q12 IV Last administered on 07/26/18 10:09; Admin Dose 20 MG; Start 07/25/18 at 21:00 Potassium Chloride/Dextrose/ Sod Cl 1,000 ml @ 100 mls/hr Q10H IV Last administered on 07/26/18at 03:45; Admin Dose 100 MLS/HR; Start 07/25/18 at 16:46 Enoxaparin Sodium (Lovenox) 40 mg DAILY@07 SC Last administered on 07/26/18at 06:22; Admin Dose 40 MG; Start 07/26/18 at 07:00 Acetaminophen (Tylenol Tab) 650 mg Q6H PRN PO MILD PAIN(1-3)OR ELEVATED TEMP Last administered on 07/26/18at 11:14; Admin Dose 650 MG; Start 07/26/18 at 02:30 Cefazolin Sodium 50 ml @ 100 mls/hr Q8 IVPB Last administered on 07/26/18at 06:18; Admin Dose 100 MLS/HR; Start 07/26/18 at 06:00 ROSLYN DAS Jul 26, 2018 12:57
[2018-07-26 14:19] VITALS: BP 128/71; PULSE 86; RESP 20
[2018-07-26] MEDS: HYDROCODONE/APAP (5/325) TAB PO PRN (15:43)
[2018-07-26 20:01] VITALS: BP 134/71; PULSE 89; RESP 18
[2018-07-27 02:25] VITALS: BP 120/56; PULSE 86; RESP 18
[2018-07-27] MEDS: HYDROmorphONE 0.5 MG/0.5 ML SYG IV PRN (03:40)
[2018-07-27] MEDS: D5W-0.45 NACL + KCL 20 MEQ 1,000 ML IV SCH (04:54)
[2018-07-27] MEDS: CEFAZOLIN 1 GM/50 ML (PMX) 50 ML IVPB SCH ×2 (05:57→13:16)
[2018-07-27] MEDS: ACETAMINOPHEN 325 MG TAB PO PRN (06:28)
[2018-07-27] MEDS: ONDANSETRON 4 MG INJ IV PRN (06:28)
[2018-07-27] MEDS: ENOXAPARIN 40 MG/0.4 ML SYG SC SCH (06:31)
[2018-07-27 07:44] VITALS: BP 122/67; PULSE 83; RESP 20
[2018-07-27] MEDS: FAMOTIDINE 20 MG INJ IV SCH (08:54)
[2018-07-27] MEDS: PREGABALIN 100 MG CAP PO SCH (08:54)
[2018-07-27] MEDS: GABAPENTIN 300 MG CAP PO SCH ×2 (08:54→13:16)
[2018-07-27] MEDS: HYDROCODONE/APAP (5/325) TAB PO PRN ×2 (09:02→16:26)
--- NOTE | 2018-07-27 14:01 | PDOCDIS ---
Discharge Instructions CONDITION [id number] Patient Condition: [id number] Stable HOME CARE INSTRUCTIONS: [id number] Diet Instructions: [id number] Low Fat /Cholesterol ACTIVITY: [id number] Activity Restrictions: [id number] Slowly Increase Activity Rest between Activity Avoid heavy lifting FOLLOW UP/APPOINTMENTS Follow-up Plan Please take your medication as prescribed, see your doctor in the clinic in the next 1 week. ROSLYN DAS Jul 27, 2018 14:01
[2018-07-27] MEDS ORDERED: HYDR-3601 PO (14:03)
[2018-07-27] MEDS ORDERED: CIPR-193 PO (14:03)
--- NOTE | 2018-07-27 14:06 | DS ---
Date/Time of Note Date/Time of Note DATE: 07/27/18 TIME: 14:03 Discharge Summary Admission/Discharge Info Admit Date/Time Jul 23, 2018 at 19:10 Discharge Date/Time Discharge Diagnosis 1. Abdominal pain: Likely secondary to acute cholecystitis- Status post lap s copic cholecystectomy 2. Dyslipidemia 3. Fibromyalgia/anxiety Patient Condition: Stable Procedures Date/Time of Note Date/Time of Note DATE: 07/25/18 TIME: 16:32 Operative Report Free Text/Dictation Operative report Procedure Date: Jul 25, 2018 Preoperative Diagnosis Acute and chronic cholecystitis Postoperative Diagnosis Severe cholecystitis Operation/Procedure Performed Laparoscopic cholecystectomy Hx of Present Illness 62-year-old female with a history of dyslipidemia, fibromyalgia, anxiety, arthritis who initially presented to an outside hospital complaining of right upper quadrant abdominal pain. Pain is been going on for the past 1 week. Abdominal ultrasound showed cholelithiasis with gallbladder wall thickening and pericholecystic fluid. Liver chemistries were WNL. Platelet was 90, hemoglobin almost 11, WBC around 8. Patient was transferred to [facility] for insurance reasons. Hospital Course Patient was admitted to medical surgical unit, diagnosed with cholecystitis, as her abdominal ultrasound showed cholelithiasis with gallbladder wall thickening and pericholecystic fluid. Patient tolerated the procedure well, after which she was continued on pain control medications, IV fluids. She was found with simple UTI as well but white blood cell count was stable, no fevers. Patient afterwards was able to ambulate, tolerated p.o. diet. After getting clearance from the packaging sales consultant team patient will be discharged home today in improved condition. See below for full list of discharge medications. Home Meds Active Scripts Ciprofloxacin Hcl* (Ciprofloxacin Hcl*) 250 Mg Tablet, 250 MG PO BID for 3 Days, #6 TAB Prov:ROSLYN DAS S. 07/27/18 Hydrocodone Bit-Acetaminophen (Hydrocodone Bit-APAP) 5-325MG Tablet, 1 TAB PO Q6H PRN for PAIN LEVEL 6-10, #15 TAB Prov:ROSLYN DAS S. 07/27/18 Reported Medications Pregabalin* (Lyrica*) 300 Mg Capsule, 300 MG PO BID, CAP 07/23/18 Aspirin Ec (Aspir 81) 81 Mg Tablet.dr, 81 MG PO DAILY, #30 TAB 05/01/18 [simvastatin] 20 No Conflict Check, PO hs 12/6/18 Gabapentin* (Gabapentin*) 800 Mg Tablet, 600 MG PO TID, TAB 07/20/14 Discontinued Reported Medications [ibuprofen] No Conflict Check, PO DAILY PRN for PAIN AND/OR INFLAMMATION 05/01/18 [meloxicam] No Conflict Check, PO DAILY 05/01/18 Follow-up Plan Please take your medication as prescribed, see your doctor in the clinic in the next 1 week. Primary Care Provider Not On Staff Doctor Time spent on discharge: > 30 minutes Pending Labs Laboratory Tests Test 07/26/18 14:45 07/27/18 05:34 Urine Color YELLOW (YELLOW) Urine Clarity CLEAR (CLEAR) Urine pH 7.0 (5.0-9.0) Urine Specific [place] 1.004 (1.003-1.030) Urine Ketones NEGATIVE mg/dL (NEGATIVE) Urine Nitrite NEGATIVE mg/dL (NEGATIVE) Urine Bilirubin NEGATIVE mg/dL (NEGATIVE) Urine Urobilinogen 2+ mg/dL (NEGATIVE) Urine Leukocyte Esterase NEGATIVE Evelyn/ul Urine Hemoglobin NEGATIVE mg/dL (NEGATIVE) Urine Glucose NEGATIVE mg/dL (NEGATIVE) Urine Total Protein NEGATIVE mg/dl (NEGATIVE) White Blood Count 8.5 10^3/ul (4.8-10.8) Red Blood Count 3.48 10^6/ul (4.20-5.40) Hemoglobin 9.7 g/dl (12.0-16.0) Hematocrit 30.2 % (37.0-47.0) Mean Corpuscular Volume 86.8 fl (82.0-101.0) Mean Corpuscular 27.9 pg (29.0-33.0) Hemoglobin Mean Corpuscular 32.1 g/dl (32.0-37.0) Hemoglobin Concent Red Cell Distribution 13.4 % (11.5-14.5) Width Platelet Count 254 10^3/UL (140-415) Mean Platelet Volume 10.3 fl (7.4-10.4) Immature Granulocytes % 0.500 % (0.001-0.429) Neutrophils % 74.3 % (39.0-77.0) Lymphocytes % 15.9 % (15.0-51.0) Monocytes % 7.6 % (0.0-11.0) Eosinophils % 1.3 % (0.0-7.0) Basophils % 0.4 % (0.0-2.0) Nucleated Red Blood Cells 0.0 /100WBC (0.0-0.0) % Immature Granulocytes # 0.040 10^3/ul (0.0-0.031) Neutrophils # 6.4 10^3/ul (1.6-7.5) Lymphocytes # 1.4 10^3/ul (0.8-2.9) Monocytes # 0.7 10^3/ul (0.3-0.9) Eosinophils # 0.1 10^3/ul (0.0-0.5) Basophils # 0.0 10^3/ul (0.0-0.1) Nucleated Red Blood Cells 0.0 10^3/ul (0.0-0.0) # Sodium Level 139 mmol/L (135-144) Potassium Level 3.8 mmol/L (3.5-5.1) Chloride Level 104 mmol/L (97-110) Carbon Dioxide Level 27 mmol/L (21-31) Anion Gap 8 (5-13) Blood Urea Nitrogen 3 mg/dl (7-20) Creatinine 0.53 mg/dl (0.44-1.00) Est Glomerular Filtrat > 60 mL/min (>60) Rate mL/min Glucose Level 123 mg/dl (70-220) Calcium Level 8.7 mg/dl (8.4-10.2) Phosphorus Level 3.5 mg/dl (2.5-4.9) Magnesium Level 1.8 mg/dl (1.7-2.5) ROSLYN DAS Jul 27, 2018 14:06
[2018-07-27 14:23] VITALS: BP 142/72; PULSE 77; RESP 18
== END 2018-07-27 16:40 | disposition home or self-care (01) | DRG 419 ==
LOC: 2NE 19:10
PROVIDERS: ADMIT Internal Medicine; ATTEND Hospitalist
PROC: 0FT44ZZ Resection of Gallbladder, Percutaneous Endoscopic Approach (ICD-10-PCS; principal; 2018-07-25 15:00)
DX: K80.12 Calculus of gallbladder with acute and chronic cholecystitis without obstruction (principal); E78.5 Hyperlipidemia, unspecified; M79.7 Fibromyalgia; F41.9 Anxiety disorder, unspecified; G62.9 Polyneuropathy, unspecified
CPT/HCPCS: 80048; 80053; 80061; 81003; 83605; 83690; 83735; 84100; 85025; 87040; 87081; 87086; 88304; J0690; J1170; J1200; J1650; J2250; J2270; J2405; J3010; J3480; J7042